=== PATIENT | female | born 2005 | race Caucasian/White ===

== ENCOUNTER 2024-04-12 10:44 | Emergency (ER) | payer OTHER ==
[~2024-04-12] VITALS: Ht 154.9 cm; Wt 58.0 kg
[2024-04-12 10:48] VITALS: O2SAT 96
[2024-04-12] MEDS: IBUPROFEN 600MG TABLET PO ONE (12:34)
[2024-04-12] MEDS: ACETAMINOPHEN 325MG TABLET PO ONE (12:34)
[2024-04-12] MEDS: ONDANSETRON HCL 4MG/2ML INJ IV ONE (12:34)
[2024-04-12 13:10] LABS: BASOPHILS % 0.2 % (0.0-2.0); EOSINOPHILS % 0.2 % (0.0-5.0); HEMATOCRIT. 39.1 % (36.0-48.0); HEMOGLOBIN. 13.2 g/dL (12.0-16.0); LYMPHOCYTES % 11.7 % (20.0-50.0); MEAN CORPUSCULAR HEMOGLOBIN 28.6 pg (28.0-32.0); MEAN CORPUSCULAR HGB CONC 33.7 g/dL (31.0-37.0); MEAN PLATELET VOLUME 7.7 fl (7.4-10.4); MONOCYTES % 9.9 % (2.0-8.0); PLATELET 326 x1000/uL (130-400); RED CELL DISTRIBUTION WIDTH 13.7 % (11.6-14.6); WHITE BLOOD COUNT 6.4 x1000/uL (4.5-11.0)
[2024-04-12 13:21] LABS: CHLORIDE 102 mEq/L (98-107); POTASSIUM 3.3 mEq/L (3.5-5.1); SODIUM 137 mEq/L (136-145)
[2024-04-12 13:22] LABS: CALCIUM 9.7 mg/dL (8.7-10.4); CARBON DIOXIDE 25 mEq/L (21-32)
[2024-04-12 13:27] LABS: CREATININE 0.8 mg/dL (0.6-1.0); GLUCOSE 92 mg/dL (70-105); UREA NITROGEN BLOOD 7 mg/dL (9-23)
[2024-04-12] MEDS: LACTATED RINGERS 1,000 ML IV SCH (13:27)
[2024-04-12 13:28] LABS: ALANINE AMINOTRANSFERASE 10 IU/L (10-49); ASPARTATE AMINOTRANSFERASE 22 IU/L (<34)
[2024-04-12 13:29] LABS: BILIRUBIN TOTAL 0.4 mg/dL (0.1-1.0); PROTEIN TOTAL 8.4 g/dL (6.0-8.3)
[2024-04-12 13:31] LABS: HCG SCREEN NEGATIVE
[2024-04-12] MEDS ORDERED: ONDA-239 PO (13:59)
[2024-04-12 14:20] VITALS: BP 105/64; PULSE 111; RESP 16; TEMP 36.78072; O2SAT 100
== END 2024-04-12 14:28 | disposition home or self-care (01) ==
LOC: ER 10:44
DX: B34.9 Viral infection, unspecified (principal); Z20.822 Contact with and (suspected) exposure to COVID-19
CPT/HCPCS: 80053; 84703; 87430; 85025; 87070; 87804 ×2; 36415; 71045; 93005; 96361; 96374; 99291; 87426; J2405; Z7610

== ENCOUNTER 2024-12-30 18:13 | Emergency (ER) | payer MEDICAID, OTHER ==
[~2024-12-30] VITALS: Ht 154.9 cm; Wt 57.0 kg
[~2024-12-30 18:13] MED LIST: ONDA-239 PO
[2024-12-30 19:10] VITALS: O2SAT 100
[2024-12-30] MEDS ORDERED: KETOROLAC 30MG/ML VIAL IM ONE (22:30)
[2024-12-30] MEDS ORDERED: DIPHENHYDRAMINE 25MG CAPSULE PO ONE (22:30)
[2024-12-30] MEDS ORDERED: PREDNISONE 20MG TABLET PO ONE (22:30)
[2024-12-30] MEDS ORDERED: ACET-3800 MT (23:23)
[2024-12-30] MEDS ORDERED: ACETAMINOPHEN 325MG TABLET PO ONE (23:30)
[2024-12-30 23:41] VITALS: BP 107/72; PULSE 60; RESP 18; TEMP 36.9; O2SAT 100
== END 2024-12-30 23:43 | disposition home or self-care (01) ==
LOC: ER 18:13
DX: T78.40XA Allergy, unspecified, initial encounter (principal); W57.XXXA Bitten or stung by nonvenomous insect and other nonvenomous arthropods, initial encounter; Y93.89 Activity, other specified; Y92.89 Other specified places as the place of occurrence of the external cause; Y99.8 Other external cause status
CPT/HCPCS: 99283; 81025; Q0163; J1885; J7512

== ENCOUNTER 2025-03-15 18:53 | Emergency (ER) | payer MEDICAID ==
[~2025-03-15] VITALS: Ht 154.9 cm; Wt 57.0 kg
[~2025-03-15 18:53] MED LIST changes: +ACET-3800 MT
[2025-03-15 19:56] VITALS: O2SAT 100
[2025-03-15] MEDS: ACETAMINOPHEN 650MG/20.3ML UDC PO ONE (23:21)
[2025-03-16] MEDS ORDERED: TOPUD MT (00:06)
[2025-03-16 01:50] VITALS: BP 120/81; PULSE 85; RESP 16; TEMP 37.1; O2SAT 100
== END 2025-03-16 01:50 | disposition home or self-care (01) ==
LOC: ER 19:06
DX: J02.8 Acute pharyngitis due to other specified organisms (principal); B97.89 Other viral agents as the cause of diseases classified elsewhere
CPT/HCPCS: 99285; 87430; 87070; 73110; 73130; A6449

== ENCOUNTER 2025-04-11 20:31 | Emergency (ER) | payer MEDICAID ==
[~2025-04-11] VITALS: Ht 154.9 cm; Wt 59.0 kg
[~2025-04-11 20:31] MED LIST changes: +TOPUD MT
[2025-04-11 20:42] VITALS: O2SAT 99
[2025-04-11 22:05] LABS: PLATELET 402 x1000/uL (130-400); RED BLOOD CELL COUNT 4.36 mill/uL (4.2-5.4); RED CELL DISTRIBUTION WIDTH 13.7 % (11.6-14.6)
[2025-04-11 22:40] LABS: CREATININE 0.7 mg/dL (0.6-1.0); UREA NITROGEN BLOOD 8 mg/dL (9-23)
[2025-04-11 23:02] LABS: CLARITY URINE CLOUDY (CLEAR); COLOR URINE YELLOW (YELLOW); GLUCOSE URINE NEGATIVE (NEGATIVE); KETONES URINE TRACE (NEGATIVE); LEUKOCYTE ESTERASE URINE 2+ (NEGATIVE); NITRITE URINE NEGATIVE (NEGATIVE); OCCULT BLOOD URINE 3+ (NEGATIVE); PH URINE 6.5 (4.5-8.0); PROTEIN URINE TRACE (NEGATIVE); SPECIFIC GRAVITY URINE 1.020 (1.005-1.030); UROBILINOGEN URINE 1.0 E.U./dL (0.2-1.0)
[2025-04-11 23:08] LABS: PROTEIN TOTAL 7.6 g/dL (6.0-8.3)
[2025-04-11 23:10] LABS: ASPARTATE AMINOTRANSFERASE 18 IU/L (<34); BILIRUBIN DIRECT 0.1 mg/dL (<=3.0); BILIRUBIN TOTAL 0.4 mg/dL (0.1-1.0)
[2025-04-11 23:30] LABS: HCG SCREEN NEGATIVE
[2025-04-11 23:39] LABS: BACTERIA URINE 1+; RBC URINE 0-2 /hpf (0-2); SQUAMOUS EPITHELIAL CELL URINE 1+ /lpf (RARE/1+)
[2025-04-11] MEDS ORDERED: CEFP200T14 MT (23:46)
[2025-04-11] MEDS: POTASSIUM CHLORIDE 20MEQ TABLET SR PO ONE (23:49)
[2025-04-11] MEDS: DEXAMETHASONE 10 MG/ML VIAL PO ONE (23:50)
[2025-04-11] MEDS: ONDANSETRON 4MG ODT PO ONE ×2 (23:50)
[2025-04-12 00:14] VITALS: BP 110/73; PULSE 100; RESP 20; TEMP 37.3; O2SAT 100
== END 2025-04-12 00:15 | disposition home or self-care (01) ==
LOC: ER 20:31
DX: J03.90 Acute tonsillitis, unspecified (principal); N39.0 Urinary tract infection, site not specified; Z79.899 Other long term (current) drug therapy
CPT/HCPCS: 99285; 71045; 80076; 80048; 81003; 84703; 87430; 85027; 87070; 36415; 93005; Q0162; J1100